=== PATIENT | female | born 1935 | race Caucasian/White ===

== ENCOUNTER → 2016-11-17 | Outpatient (CLI) | payer OTHER ==
[~2016-11-17] MED LIST: ASPIR 8181 MG PO; ASPIRIN EC81 M1 PO; CALTRATE-600 W1 EACH PO; CENESTIN0.3 MG PO; CENTRUM COMPLE1 EACH PO; GLUCOSAMINE PO; HYDROCODONE-AP1 EAC6 PO; LEVOTHROID PO; LEVOTHYROXIN0.025 MG PO; PROMETRIUM200 MG PO; SENNA-S TABLET1 EACH PO; VITAMIN D1000 UNI1 PO; [UNRECOGNIZED DRUG - OTHER] PO
== END ==
LOC: CAT 09:40
DX: N28.1 Cyst of kidney, acquired (principal); K43.9 Ventral hernia without obstruction or gangrene

== ENCOUNTER → 2016-11-29 | Outpatient (CLI) | payer OTHER | LOC: CAT 10:07 | DX: N28.1 Cyst of kidney, acquired (principal) ==

== ENCOUNTER → 2016-12-09 | Outpatient (CLI) | payer OTHER | LOC: CAT 09:35 | PROVIDERS: Colon & Rectal Surgery | DX: R19.04 Left lower quadrant abdominal swelling, mass and lump (principal) ==

== ENCOUNTER → 2017-01-02 | Outpatient (CLI) | payer OTHER | LOC: RAD 12:40 | DX: Z12.31 Encounter for screening mammogram for malignant neoplasm of breast (principal) ==

== ENCOUNTER → 2017-01-20 | Outpatient (CLI) | payer OTHER | LOC: CAT 08:57 | PROVIDERS: Colon & Rectal Surgery | DX: N28.1 Cyst of kidney, acquired (principal); K59.00 Constipation, unspecified ==

== ENCOUNTER → 2018-02-23 | Outpatient (CLI) | payer OTHER | LOC: RAD 10:44 | DX: Z12.31 Encounter for screening mammogram for malignant neoplasm of breast (principal) ==

== ENCOUNTER → 2018-05-21 | Outpatient (CLI) | payer OTHER ==
[~2018-05-21] VITALS: Ht 162.6 cm; Wt 86.2 kg
[~2018-05-21] MED LIST changes: +FIBER500 MG PO; +SYNTHROID50 MCG PO
--- NOTE | ~2018-05-21 | P ---
[facility] [address] [address] PROCEDURE REPORT Name: ELIZABETH BROOKS Room #: REG [facility].#: [id number] Admission: 05/21/18 ������������������ Attend Phys: Olaf Pitts MD Discharge: ������������������ Date of : 39 Report #: [id number] THIS REPORT FOR: //name// CC: ALYSON Pitts BRIEF HISTORY: The patient is an 82-year-old woman with history of T3 N0 cecal carcinoma resected in 2010. She presents for high risk screening due to her history of colon cancer. PREOPERATIVE DIAGNOSIS: History of colon cancer. POSTOPERATIVE DIAGNOSIS: Colon polyps. MEDICATIONS: Deep sedation with propofol per anesthesia. SPECIMENS: 1. Polyps x 2, mid transverse colon. 2. Polyp, distal transverse colon. ESTIMATED BLOOD LOSS: 3 mL. PROCEDURE: Colonoscopy to cecum and terminal ileum with snare polypectomy, biopsy, and injection of saline and Emerita ink. FINDINGS: Prior to propofol sedation, procedure of colonoscopy was discussed with the patient as well as potential risks and its complications. She indicates she understands and desires to proceed. DESCRIPTION OF PROCEDURE: With the patient in left lateral decubitus position, digital examination was completed, which revealed no abnormalities. Subsequently, the Olympus video colonoscope was introduced in the rectum, advanced under direct vision to the surgical anastomosis. The surgical anastomosis was inspected and noted to be unremarkable. There is no evidence of neoplastic disease. The distal segment of the terminal ileum was inspected and noted to be unremarkable. At that point, scope was slowly withdrawn and careful circumferential views were obtained. Upon slow withdrawal of the scope, the prep was good. The mucosa was within normal limits, normal vascular pattern, normal light reflex. As we withdrew the scope, she was found to have actually 2 flat polyps in the mid transverse colon. One polyp was about 5-6 mm x 12 mm. The second polyp was in the very close vicinity and was about 3 x 5 mm. They were elevated with saline. We were able to remove a portion of the larger polyp with passage of a snare, but in spite of the saline, it was still very flat and we were unable to further engage the snare in the polyp. We then removed in a piecemeal fashion with a jumbo biopsy forceps. All visible polyp tissue was removed. Tattoos were placed on the lateral aspects of the polypectomy site. [address] [address] PROCEDURE REPORT Name: ELIZABETH BROOKS Room #: [facility].#: [id number] Admission: 05/21/18 ������������������ Attend Phys: Olaf Pitts MD Discharge: ������������������ Date of : 39 Report #: [id number] Just distal to this area in the distal transverse colon, a diminutive polyp was seen and removed by biopsy. Scope was further withdrawn. No additional polyps were seen. The remainder of the colon was normal. The scope was withdrawn in the rectum and no abnormalities were seen. Upon retroflexion, small hemorrhoids were seen. Scope was withdrawn. The patient tolerated the procedure well. CONDITION OF THE PATIENT UPON DISCHARGE: Following procedure, the patient drowsy, aroused, conversant. She will be discharged home when fully ambulatory. INSTRUCTIONS TO THE PATIENT AND FAMILY AT THE TIME OF DISCHARGE: The patient with polyps as noted above. The mid transverse colon polyps had to be removed in a piecemeal fashion. We will follow up on pathology and make further recommendations. May need to consider earlier than usual surveillance due to the piecemeal removal of these polyps. We will make further recommendations after review of the path report. ��������������������������������������������� ���������������������������������������� By: ��������������������������������������������� 1027 [id number] Olaf Pitts MD /nt
--- NOTE | 2018-05-25 15:24 | PATH ---
[facility] [place] [address] PATHOLOGY RPT PROCEDURE Name: ELIZABETH BROOKS Room #: REG [facility] M.R.#: [id number] ������������������ Admission: 05/21/18 ������������������ Date of : 39 Discharge: Report #: [id number] Path Case #: [id number] [facility] Accession Number: [id number] . 01 Material submitted: . PART A: POLYP AT MID TRANSVERSE COLON X 2 PART B: POLYP AT DISTAL TRANSVERSE COLON . 01 Clinical history: . Pre-OP DX: HX colon cancer, Hx polyps Post-OP DX: Colon polyps, hemorrhoids . 02 Diagnosis: A. Polyp x2, at mid transverse colon, endoscopic biopsy: - All fragments showing hyperplastic polyp. - Negative for dysplasia. . B. Polyp, at distal transverse colon, endoscopic biopsy: - Tubular adenoma admixed with a hyperplastic polyp. - Negative for high-grade dysplasia. . (IUV:catie; 05/22/2018) MBR/05/22/2018 . 02 Electronically signed: . Sindy Condon MD, Pathologist NPI- [id number] . 01 Gross description: . A. Received in formalin labeled "Elizabeth Brooks, polyp at mid transverse colon x2," are multiple segments of berg soft tissue admixed with vegetative material measuring 2.4 x 0.9 x 0.1 cm in aggregate dimensions. The specimen is filtered and entirely submitted in cassette A1. . B. Received in formalin labeled "[place], Elizabeth, polyp at distal transverse colon," are 2 segments of berg soft tissue measuring 1.1 x 0.2 x 0.2 cm in aggregate dimensions and ranging from 0.3 to 0.7 cm in maximum dimension. The specimen is submitted entirely in cassette B1. (TSD; 05/21/2018) TOB/TOB . 02 Pathologist provided ICD-10: K63.5, D12.3 . 02 CPT . 902113, [id number] Specimen Comment: Report sent to / DR LLOYD [address] [address] PATHOLOGY RPT PROCEDURE Name: ELIZABETH BROOKS S [id number] ������������������ Admission: 05/21/18 ������������������ Date of : 39 Discharge: Report #: [id number] Path Case #: [id number] Specimen Comment: A duplicate report has been generated due to demographic updates. Performed at: [address] [facility], [place], [place] [id number] MD Michael Lynn MD Phone: [phone] Performed at: [address] [id number] MD Sindy Condon MD Phone: [phone]
== END | disposition home or self-care (01) ==
LOC: GI 07:12
DX: Z12.11 Encounter for screening for malignant neoplasm of colon (principal); Z85.038 Personal history of other malignant neoplasm of large intestine; D12.2 Benign neoplasm of ascending colon; K63.5 Polyp of colon; G43.909 Migraine, unspecified, not intractable, without status migrainosus; E03.9 Hypothyroidism, unspecified; Z85.828 Personal history of other malignant neoplasm of skin; Z85.820 Personal history of malignant melanoma of skin; Z85.42 Personal history of malignant neoplasm of other parts of uterus; Z90.710 Acquired absence of both cervix and uterus; Z98.890 Other specified postprocedural states; Z79.899 Other long term (current) drug therapy
CPT/HCPCS: 62110; 62900

== ENCOUNTER → 2019-03-08 | Outpatient (CLI) | payer OTHER | LOC: RAD 12:09 | DX: Z12.31 Encounter for screening mammogram for malignant neoplasm of breast (principal) ==

== ENCOUNTER → 2020-04-21 | Outpatient (CLI) | payer OTHER | LOC: RAD 12:17 | PROVIDERS: ATTEND Internal Medicine | DX: Z12.31 Encounter for screening mammogram for malignant neoplasm of breast (principal) ==

== ENCOUNTER → 2021-05-19 | Outpatient (CLI) | payer OTHER | LOC: BC 10:21 | PROVIDERS: ATTEND Internal Medicine | DX: Z12.31 Encounter for screening mammogram for malignant neoplasm of breast (principal) ==